=== PATIENT | male | born 1960 | race Caucasian/White ===

== ENCOUNTER 2019-09-30 07:59 | Day surgery (SDC) | payer OTHER ==
[~2019-09-30] VITALS: Ht 177.8 cm; Wt 101.2 kg
--- NOTE | 2019-09-30 08:29 | NUR ---
FIRST CONTACT WITH PT. PT REPORTS KNOWN UMBULICAL HERNIA AND WORSENING HERNIA LEFT GROIN. PT DENIES N/V/D. PT'S AOX4. RESPS EVEN AND UNLABORED. BP/SPO2 MONITORS IN PLACE. CALL LIGHT WITHIN REACH.
--- NOTE | 2019-09-30 08:45 | NUR ---
PA AT BEDSIDE EVALUATING AT THIS TIME.
--- NOTE | 2019-09-30 08:51 | NUR ---
LAB AT BEDSIDE AT THIS TIME.
[2019-09-30] MEDS ORDERED: SODIUM CHLORIDE FLUSH 10ML SYR IVF ONE (09:00)
--- NOTE | 2019-09-30 09:16 | NUR ---
PT PROVIDED URINE SAMPLE. URINE COLLECTED AND UA SENT AT THIS TIME.
[2019-09-30 09:20] LABS: BASOPHILS # (AUTO) 0.02 x10^3/uL (0-0.1); BASOPHILS % (AUTO) 0 % (0-1); EOSINOPHILS # (AUTO) 0.08 x10^3/uL (0-0.4); EOSINOPHILS % (AUTO) 1 % (1-7); LYMPHOCYTES # (AUTO) 1.02 x10^3/uL (1-3.4); LYMPHOCYTES % (AUTO) 13 % (22-44); MD NO; MEAN CORPUSCULAR HEMOGLOBIN 32.8 pg (27.5-34.5); MEAN CORPUSCULAR HGB CONC 33.4 g/dL (33.2-36.2); MEAN CORPUSCULAR VOLUME 98.3 fL (81-97); MEAN PLATELET VOLUME 8.8 fL (7.4-10.4); MONOCYTES # (AUTO) 0.51 x10^3/uL (0.2-0.8); MONOCYTES % (AUTO) 7 % (2-9); NEUTROPHILS # (AUTO) 6.03 x10^3/uL (1.8-6.8); NEUTROPHILS % (AUTO) 79 % (42-75); PLATELET COUNT 210 x10^3/uL (130-400); RED BLOOD COUNT 4.81 x10^6/uL (4.38-5.82)
[2019-09-30 09:29] LABS: ALBUMIN 3.8 g/dL (3.4-5.0); ANION GAP 6 mmol/L (5-15); CHLORIDE 104 mmol/L (98-107)
[2019-09-30 09:30] LABS: MICROSCOPIC NOT IND
[2019-09-30 09:32] LABS: ALANINE AMINOTRANSFERASE 39 U/L (12-78); ALKALINE PHOSPHATASE 68 U/L (45-117); BILIRUBIN,TOTAL 0.9 mg/dL (0.2-1.0); CREATININE 1.03 mg/dL (0.7-1.3); TOTAL PROTEIN 7.2 g/dL (6.4-8.2)
--- NOTE | 2019-09-30 10:12 | NUR ---
PT RESTING IN [facility]. PT'S AOX4. RESPS EVEN AND UNLABORED. BP/SPO2 MONITORS IN PLACE. CALL LIGHT WITHIN REACH.
[2019-09-30] MEDS ORDERED: LISI-170 PO (10:34)
[2019-09-30] MEDS ORDERED: TAMS-11 PO (10:35)
--- NOTE | 2019-09-30 10:39 | NUR ---
PIV EST ON L AC WITH NO COMPLICATIONS. PT TOLERATED WELL.
--- NOTE | 2019-09-30 11:00 | NUR ---
REPORT GIVEN TO YOLANDA MARLEY. ALL QUESTIONS ANSWERED.
[2019-09-30 11:23] VITALS: BP 131/86
[2019-09-30] MEDS ORDERED: ONDANSETRON 2MG/ML, 2ML IVPush PRN ×3 (14:00→19:00)
[2019-09-30] MEDS ORDERED: D5%-0.45% NACL 1,000 ML IV SCH (14:00)
[2019-09-30 14:04] VITALS: BP 125/84
[2019-09-30] MEDS ORDERED: BUPIVACAINE/PF-EPI 0.5% 1:200K ONE (14:27)
[2019-09-30] MEDS ORDERED: CHLORHEXIDINE 15 ML UDC MM ONE (14:30)
[2019-09-30] MEDS ORDERED: MIDAZOLAM 1 MG/ML, 2ML ONE (14:51)
[2019-09-30] MEDS ORDERED: FENTANYL PF 250 MCG/5ML ONE (14:51)
[2019-09-30] MEDS ORDERED: PROPOFOL 10 MG/ML, 20ML ONE (14:53)
[2019-09-30] MEDS ORDERED: ROCURONIUM 10MG/ML,5ML ONE (14:53)
[2019-09-30] MEDS ORDERED: DEXAMETHASONE 4 MG/ML, 1ML ONE ×2 (14:53→16:30)
[2019-09-30] MEDS ORDERED: SUCCINYLCHOLINE 20 MG/ML, 10ML ONE (14:53)
[2019-09-30] MEDS ORDERED: SUGAMMADEX 200 MG/2 ML IVPush ONE (15:49)
[2019-09-30] MEDS ORDERED: KETOROLAC 30 MG/1 ML ONE (15:49)
[2019-09-30] MEDS ORDERED: CEFAZOLIN 1,000 MG ONE (15:49)
[2019-09-30] MEDS ORDERED: BUPIVACAINE/PF-EPI 0.5% 1:200K INFIL ONE (16:06)
[2019-09-30] MEDS ORDERED: ONDANSETRON 2MG/ML, 2ML ONE ×2 (16:30)
[2019-09-30] MEDS ORDERED: PHENYLEPHRINE 10 MG/ML ONE (16:30)
[2019-09-30] MEDS ORDERED: HYDROmorphone 1 MG/ML, 1ML INJ ONE (17:24)
[2019-09-30] MEDS ORDERED: EPHEDRINE 50 MG/ML, 1ML IVPush PRN (17:30)
[2019-09-30] MEDS ORDERED: ACETAMINOPHEN 325 MG TABLET PO PRN (17:30)
[2019-09-30] MEDS ORDERED: ALBUTEROL SULFATE 2.5 MG/3 ML NPPB PRN (17:30)
[2019-09-30] MEDS ORDERED: LABETALOL 5MG/ML, 20ML IV PRN (17:30)
[2019-09-30] MEDS ORDERED: PROMETHAZINE 25 MG/ML, 1ML IVPush PRN (17:30)
[2019-09-30] MEDS ORDERED: hydrALAzine 20 MG/ML, 1ML IV PRN (17:30)
[2019-09-30] MEDS ORDERED: DIAZEPAM 5 MG/ML, 2ML IVPush PRN (17:30)
[2019-09-30] MEDS ORDERED: OXYcodone 5 MG/5 ML ORAL.SOL UDC PO PRN (17:30)
[2019-09-30] MEDS ORDERED: MEPERIDINE/PF 25MG/0.5ML IVPush PRN (17:30)
[2019-09-30] MEDS ORDERED: FENTANYL PF 100 MCG/2ML IV PRN (17:30)
[2019-09-30] MEDS ORDERED: MIDAZOLAM 1 MG/ML, 2ML IV PRN (17:30)
[2019-09-30] MEDS ORDERED: PROMETHAZINE 12.5 MG SUPP PR PRN (17:30)
[2019-09-30] MEDS ORDERED: DIPHENHYDRAMINE 50 MG/ML, 1ML IVPush PRN (17:30)
[2019-09-30] MEDS: HYDROmorphone 1 MG/ML, 1ML INJ IVPush PRN ×2 (17:34→17:42)
[2019-09-30 18:30] VITALS: BP 133/81
[2019-09-30] MEDS ORDERED: D5%-0.45NACL+KCL 20MEQ 1,000 ML IV SCH (19:00)
[2019-09-30] MEDS ORDERED: MORPHINE SULFATE 4 MG/ML, 1ML IVPush PRN (19:00)
[2019-09-30] MEDS: OXYcodone 5 MG/5 ML ORAL.SOL UDC PO PRN (20:16)
[2019-09-30] MEDS: KETOROLAC 30 MG/1 ML IV PRN (20:17)
[2019-09-30] MEDS: ACETAMINOPHEN 500 MG TABLET PO SCH (20:21)
[2019-09-30] MEDS: IBUPROFEN 600 MG TABLET PO SCH ×2 (20:21→22:50)
[2019-10-01 00:20] VITALS: BP 115/77
[2019-10-01] MEDS: OXYcodone 5 MG/5 ML ORAL.SOL UDC PO PRN ×2 (00:35→09:28)
[2019-10-01] MEDS: ACETAMINOPHEN 500 MG TABLET PO SCH ×2 (03:00→09:30)
[2019-10-01] MEDS: KETOROLAC 30 MG/1 ML IV PRN ×2 (03:15→09:29)
[2019-10-01 04:04] VITALS: BP 137/83
[2019-10-01 06:45] VITALS: BP 120/77
[2019-10-01] MEDS ORDERED: HEPARIN 5,000 UNITS/ML, 1ML SQ SCH (08:00)
[2019-10-01] MEDS ORDERED: IBUP-1222 PO (10:51)
[2019-10-01] MEDS ORDERED: ACET-76 PO (10:51)
[2019-10-01] MEDS ORDERED: OXYC5TAB3 PO (10:52)
== END 2019-10-01 12:36 | disposition home or self-care (01) ==
LOC: ED 09:26 → EDIP 10:24 → UNDOADMIN 10:24 → EDIP 11:16 → 4NE 11:16 → EDSTATUS 15:51 → ED 16:50 → 4NE 10-01 10:56 → DCLOUNGE 10-01 10:56 → UNDODISIN 10-01 11:10 → ED 10-01 12:36
PROVIDERS: ATTEND Emergency Medicine
DX: K40.91 Unilateral inguinal hernia, without obstruction or gangrene, recurrent (principal); Z20.828 Contact with and (suspected) exposure to other viral communicable diseases; D17.6 Benign lipomatous neoplasm of spermatic cord; I10 Essential (primary) hypertension; J44.9 Chronic obstructive pulmonary disease, unspecified; R73.9 Hyperglycemia, unspecified; E66.9 Obesity, unspecified; F17.210 Nicotine dependence, cigarettes, uncomplicated; Z79.899 Other long term (current) drug therapy; Z87.19 Personal history of other diseases of the digestive system; Z88.5 Allergy status to narcotic agent; Z88.8 Allergy status to other drugs, medicaments and biological substances
CPT/HCPCS: 36415; 49520; 80053; 81003; 85025; 87635; 93005; 99285; C1781; J0330; J0690; J1100; J1170; J1885; J2250; J2370; J2405; J2704; J3010; G0378